=== PATIENT | male | born 1965 | race Caucasian/White ===

== ENCOUNTER → 2020-02-09 09:31 | Outpatient (BNVA) | payer OTHER, SELFPAY | PROVIDERS: Family Provider Nurse Practitioner; PCP Nurse Practitioner; Visit Provider Nurse Practitioner | DX: I10 Essential (primary) hypertension (principal); E78.2 Mixed hyperlipidemia | CPT/HCPCS: 80053; 80061 ==

== ENCOUNTER → 2020-08-02 08:26 | Outpatient (BNVA) | payer OTHER, SELFPAY | PROVIDERS: Family Provider Nurse Practitioner; PCP Nurse Practitioner; Visit Provider Nurse Practitioner | DX: E78.2 Mixed hyperlipidemia (principal); I10 Essential (primary) hypertension | CPT/HCPCS: 80053; 80061; 85025 ==

== ENCOUNTER → 2021-03-11 08:49 | Outpatient (BNVA) | payer MEDICAID, SELFPAY | PROVIDERS: Family Provider Nurse Practitioner; PCP Nurse Practitioner; Visit Provider Nurse Practitioner | DX: E78.2 Mixed hyperlipidemia (principal); I10 Essential (primary) hypertension | CPT/HCPCS: 80053; 80061 ==

== ENCOUNTER 2021-05-09 10:15 | Outpatient (CLI) | payer OTHER, SELFPAY ==
--- NOTE | 2021-05-09 10:26 | XR_ITS ---
WS: [id number] Lumbar spine, 3 views, 05/09/2021 Clinical Data: JOINT BACK PAIN Comparison: Lumbar spine, 06/09/2006. Findings: No compression fractures or subluxation is seen. There is degenerative disc narrowing at L3-L4 and L5 -S1.. The transverse processes and SI joints are normal. There is anterior osteoarthritic spurring from L1 through L5. XR/XR lumbar spine 2-3V* [id number] Impression: 1. Moderate osteoarthritis L1-L5. 2. Disc narrowing at L3-L4 and L5-S1.
--- NOTE | 2021-05-09 10:26 | XR_ITS ---
WS: [id number] Left knee, AP and lateral views, 05/09/2021 Clinical Data: JOINT BACK PAIN Comparison: Left knee, 06/06/2019. Findings: The left knee arthroplasty remains in good position. No loosening is seen. No fractures are noted. The soft tissues are normal. XR/XR knee LT 1-2V [id number] Impression: No change in left knee arthroplasty.
== END 2021-05-09 10:16 | disposition home or self-care (01) ==
LOC: RAD 10:17
PROVIDERS: PCP Nurse Practitioner; Visit Provider Dermatology
DX: M25.562 Pain in left knee (principal); M54.5 Low back pain; M47.816 Spondylosis without myelopathy or radiculopathy, lumbar region; Z96.652 Presence of left artificial knee joint
CPT/HCPCS: 72100; 73560

== ENCOUNTER → 2021-10-29 08:45 | Outpatient (BNVA) | payer SELFPAY | PROVIDERS: PCP Nurse Practitioner; Visit Provider Dermatology | DX: Z01.89 Encounter for other specified special examinations (principal) ==

== ENCOUNTER → 2022-04-28 08:40 | Outpatient (BNVA) | payer MEDICARE, MEDICAID, SELFPAY | PROVIDERS: PCP Nurse Practitioner; Visit Provider Nurse Practitioner | DX: E78.2 Mixed hyperlipidemia (principal); I10 Essential (primary) hypertension; Z12.5 Encounter for screening for malignant neoplasm of prostate | CPT/HCPCS: 80053; 80061; 85025; G0103 ==

== ENCOUNTER → 2022-10-20 10:09 | Outpatient (BNVA) | payer MEDICARE, MEDICAID, SELFPAY | PROVIDERS: PCP Nurse Practitioner; Visit Provider Nurse Practitioner | DX: I10 Essential (primary) hypertension (principal) | CPT/HCPCS: 80053; 80061 ==

== ENCOUNTER → 2023-03-23 13:43 | Outpatient (BNVA) | payer MEDICARE, MEDICAID, SELFPAY | PROVIDERS: PCP Nurse Practitioner; Visit Provider Nurse Practitioner | DX: I10 Essential (primary) hypertension (principal) | CPT/HCPCS: 80053; 84443 ==

== ENCOUNTER → 2023-06-08 09:50 | Outpatient (BNVA) | payer MEDICARE, MEDICAID, SELFPAY | PROVIDERS: PCP Nurse Practitioner; Referring Provider Dermatology; Visit Provider Specialist | DX: M17.11 Unilateral primary osteoarthritis, right knee | CPT/HCPCS: 73560; 73565; 99204 ==

== ENCOUNTER 2023-07-08 08:32 | Outpatient (CLI) | payer MEDICARE, MEDICAID, SELFPAY ==
--- NOTE | 2023-07-08 09:30 | MR_ITS ---
WS: [id number] MRI RIGHT KNEE NONCONTRAST TECHNIQUE: Axial PD, coronal PD fat sat, coronal PD, sagittal PD, and sagittal PD fat-sat images obta ined. CLINICAL INFORMATION: knee pain/knee injury COMPARISON: None. FINDINGS: Distal quadriceps and patella tendons are intact. Normal ACL and PCL. Small amount of prepatellar and infrapatellar soft tissue edema. Normal lateral meniscus. Tear with blunting posterior horn medial m eniscus at the meniscal root. Chronic intrasubstance signal abnormality involving the posterior horn medial meniscus. Grade 3-4 chondromalacia medial joint compartment. Trace subchondral edema. Mild per ipheral extrusion of the medial meniscus. Moderate to advanced narrowing medial joint compartment wit h a small amount of edema in the tibial plateau. Small suprasellar effusion. Increased signal involving the proximal lateral collateral ligament kevin tible with grade 1-2 injury. Small amount of associated fluid and edema. Distal LCL appears intact. N ormal MCL. Normal popliteal fossa. Normal fibula head. Increased signal in the popliteus likely due t o tendinosis. Recommend correlation for posterolateral corner injury. Fibula head appears normal. IMPRESSION: 1. Normal ACL and PCL. 2. Advanced joint space narrowing medial joint compartment with grade 3-4 chondromalacia with trace subchondral edema. 3. Peripheral extrusion of the medial meniscus with tear involving the posterior horn at the menisca l root. Chronic intrasubstance signal in the posterior horn medial meniscus. 4. Increased signal in the LCL origin compatible with grade 1-2 injury. Small amount of associated f luid and edema. Increased signal in the popliteus can be seen with tendinosis. 5. Moderate chondromalacia patella. 6. Small suprapatellar effusion. 7. No other acute findings. Outbridge grading: grade IV: full-thickness cartilage loss with underlying bone reactive changes
== END 2023-07-08 08:33 | disposition home or self-care (01) ==
LOC: RAD 08:33
PROVIDERS: PCP Nurse Practitioner; Visit Provider Specialist
DX: S83.241A Other tear of medial meniscus, current injury, right knee, initial encounter (principal); X58.XXXA Exposure to other specified factors, initial encounter; M17.11 Unilateral primary osteoarthritis, right knee; M22.41 Chondromalacia patellae, right knee
CPT/HCPCS: 73721

== ENCOUNTER → 2023-07-15 09:49 | Outpatient (BNVA) | payer MEDICARE, MEDICAID, SELFPAY | PROVIDERS: PCP Nurse Practitioner; Visit Provider Specialist | DX: M17.11 Unilateral primary osteoarthritis, right knee (principal) | CPT/HCPCS: 99214 ==

== ENCOUNTER → 2023-09-02 09:17 | Outpatient (BNVA) | payer MEDICARE, MEDICAID, SELFPAY | PROVIDERS: PCP Nurse Practitioner; Visit Provider Nurse Practitioner | DX: E78.2 Mixed hyperlipidemia (principal); I10 Essential (primary) hypertension | CPT/HCPCS: 80053; 80061; 84443 ==

== ENCOUNTER → 2023-09-11 08:39 | Outpatient (BNVA) | payer MEDICARE, MEDICAID, SELFPAY | PROVIDERS: PCP Nurse Practitioner; Visit Provider Nurse Practitioner | DX: M17.11 Unilateral primary osteoarthritis, right knee (principal); Z71.89 Other specified counseling; T84.84XA Pain due to internal orthopedic prosthetic devices, implants and grafts, initial encounter; Z96.652 Presence of left artificial knee joint; Y79.2 Prosthetic and other implants, materials and accessory orthopedic devices associated with adverse incidents | CPT/HCPCS: 20610; 99214; J7318 ==

== ENCOUNTER → 2023-11-10 09:29 | Outpatient (BNVA) | payer MEDICARE, MEDICAID, SELFPAY | PROVIDERS: PCP Nurse Practitioner; Visit Provider Nurse Practitioner | DX: N18.2 Chronic kidney disease, stage 2 (mild) (principal); I10 Essential (primary) hypertension | CPT/HCPCS: 80048 ==

== ENCOUNTER → 2024-03-14 08:18 | Outpatient (BNVA) | payer MEDICARE, MEDICAID, SELFPAY | PROVIDERS: PCP Nurse Practitioner; Visit Provider Nurse Practitioner | DX: N18.2 Chronic kidney disease, stage 2 (mild) (principal); E78.2 Mixed hyperlipidemia; I10 Essential (primary) hypertension; Z12.5 Encounter for screening for malignant neoplasm of prostate | CPT/HCPCS: 80053; 80061; 84443; 85025; G0103 ==

== ENCOUNTER → 2024-03-16 12:09 | Outpatient (BNVA) | payer MEDICARE, MEDICAID, SELFPAY | PROVIDERS: PCP Nurse Practitioner; Visit Provider Nurse Practitioner | DX: R73.9 Hyperglycemia, unspecified (principal) | CPT/HCPCS: 83036 ==

== ENCOUNTER → 2024-10-03 08:42 | Outpatient (BNVA) | payer MEDICARE, MEDICAID, SELFPAY | PROVIDERS: PCP Nurse Practitioner; Visit Provider Nurse Practitioner | DX: N18.2 Chronic kidney disease, stage 2 (mild) (principal); I10 Essential (primary) hypertension | CPT/HCPCS: 80053; 80061; 81000 ==

== ENCOUNTER → 2025-03-27 09:00 | Outpatient (BNVA) | payer MEDICARE, MEDICAID, SELFPAY | PROVIDERS: PCP Nurse Practitioner; Visit Provider Nurse Practitioner | DX: Z12.5 Encounter for screening for malignant neoplasm of prostate (principal); N18.2 Chronic kidney disease, stage 2 (mild); I10 Essential (primary) hypertension; R73.9 Hyperglycemia, unspecified | CPT/HCPCS: 80053; 80061; 81000; 83036; G0103 ==